=== PATIENT | female | born 2000 ===

== ENCOUNTER 2022-11-09 13:42 | Outpatient (CLI) | payer MEDICAID | END 2022-11-09 13:43 | disposition home or self-care (01) | LOC: ULT 13:42 | PROVIDERS: ATTEND Advanced Practice Midwife | DX: Z31.69 Encounter for other general counseling and advice on procreation (principal); N83.202 Unspecified ovarian cyst, left side; R93.89 Abnormal findings on diagnostic imaging of other specified body structures | CPT/HCPCS: 76856; 93976 ==